=== PATIENT | female | born 1995 | race African-American/Black ===

== ENCOUNTER 2017-08-26 19:16 | Emergency (ER) | payer BC ==
[2017-08-26 19:33] VITALS: BP 113/70; PULSE 95; RESP 18; TEMP 99
[2017-08-26] MEDS ORDERED: CYCLOBENZAPRINE 10MG STARTER 3 TAB BTL PO STA (19:52)
--- NOTE | 2017-08-26 19:52 | ED ---
General Adult HPI - General Chief complaint: Back Pain/Injury Stated complaint: Back Pain Time Seen by Provider: 08/26/17 19:43 Source: patient, RN notes reviewed Mode of arrival: ambulatory Limitations: no limitations - History of Present Illness Initial comments: 21-year-old female presents to the emergency department with a chief complaint of right shoulder strain. She states she just has this pain in her right shoulder blade. She states whenever she pulls or lifts she causes herself discomfort. She states she was roughhousing before it happened. She states started today. She states that there is no shortness of breath or chest pain with this. She states there is been no nausea vomiting. They were concerned due to her continued discomfort so they thought they should be evaluated. Patient denies any recent fever, chills, shortness of breath, chest pain, back pain, abdominal pain, nausea vomiting, numbness or tingling, dysuria or hematuria, constipation or diarrhea, headaches or visual changes, or any other current symptoms. - Related Data Home Medications Medication Instructions Recorded Confirmed No Known Home Medications [No 08/26/17 08/26/17 Known Home Medications] Allergies Allergy/AdvReac Type Severity Reaction Status Date / Time No Known Allergies Allergy Verified 08/26/17 19:34 Review of Systems ROS Statement: Those systems with pertinent positive or pertinent negative responses have been documented in the HPI. ROS Other: All systems not noted in ROS Statement are negative. Past Medical History Past Medical History: No Reported History Additional Past Medical History / Comment(s): low iron History of Any Multi-Drug Resistant Organisms: None Reported Past Surgical History: No Surgical Hx Reported Past Psychological History: No Psychological Hx Reported Smoking Status: Former smoker Past Alcohol Use History: None Reported Past Drug Use History: None Reported General Exam - General Exam Comments Initial Comments: General: The patient is awake and alert, in no distress, and does not appear acutely ill. Neck: The neck is supple, there is no tenderness . Cardiovascular: There is a regular rate and rhythm. No murmur, rub or gallop is appreciated. Respiratory: Lungs are clear to auscultation, respirations are non-labored, breath sounds are equal. No wheezes, stridor, rales, or rhonchi. Musculoskeletal: Sensation intact. Pulses. Full range of motion of the right shoulder. Tenderness patient over the right rhomboids. No tenderness. At the shoulder or below. No bony tenderness noted. Neurological: CN II-XII intact, There are no obvious motor or sensory deficits. Coordination appears grossly intact. Speech is normal. Skin: Skin is warm and dry and no rashes or lesions are noted. Psychiatric: Normal mood and affect. Limitations: no limitations Course Vital Signs 08/26/17 19:31 Temperature 99 F Pulse Rate 95 Respiratory 18 Rate Blood Pressure 113/70 O2 Sat by Pulse 100 Oximetry Medical Decision Making - Medical Decision Making 21-year-old female presents for what appears to be a right rhomboid muscle strain. At this time we discussed we will give her a small flexion of muscle relaxers we discussed care follow-up return parameters all questions. Patient stated that she understood and she is very plan. All questions have been answered. She will be discharged Disposition Clinical Impression: Right shoulder strain Disposition: HOME SELF-CARE Condition: Stable Instructions: Muscle Strain (ED) Additional Instructions: Please use medication as discussed. Please follow up with family doctor if symptoms have not improved over the next two days. Please return to the emergency room if your symptoms increase or worsen or for any other concerns. Referrals: Roland Gutierrez MD [Primary Care Provider] - 1-2 days Time of Disposition: 19:52
== END 2017-08-26 20:21 | disposition home or self-care (01) ==
LOC: EC 19:16
DX: S46.911A Strain of unspecified muscle, fascia and tendon at shoulder and upper arm level, right arm, initial encounter (principal); Z87.891 Personal history of nicotine dependence; X58.XXXA Exposure to other specified factors, initial encounter; Y93.83 Activity, rough housing and horseplay
CPT/HCPCS: 99283

== ENCOUNTER 2018-04-08 15:03 | Emergency (ER) | payer BC ==
[2018-04-08 15:09] VITALS: BP 105/68; PULSE 89; RESP 20; TEMP 98.5
--- NOTE | 2018-04-08 15:20 | ED ---
Chest Pain HPI - General Chief Complaint: Chest Pain Stated Complaint: chest pain-1 wk Time Seen by Provider: 04/08/18 15:12 Source: patient, RN notes reviewed Mode of arrival: ambulatory Limitations: no limitations - History of Present Illness Initial Comments: This is a 22-year-old female with history of costochondritis who presents to the emergency department with chief complaint of chest pain. Patient reports feeling mid sternal chest pain since last Thursday. Patient states that pain is positional, increasing with movement, laying on her side and lifting. She states that the pain is worse after working a shift at work. She states she works at [employer] and does lift heavy objects. Patient states that she believes this is related to the costochondritis but her mom recommended that she come to the emergency department. Patient states that she has taken one dose of ibuprofen 600mg since onset of symptoms and that there was no improvement. She denies any other medical issues and takes no medications. She denies fevers or chills, shortness of breath, abdominal pain, nausea or vomiting. - Related Data Home Medications Medication Instructions Recorded Confirmed Norgestimate-Ethinyl Estradiol 1 tab PO DAILY 08/26/17 04/08/18 [Sprintec 28 Day Tablet] Aspirin 162 mg PO DAILY 04/08/18 04/08/18 Allergies Allergy/AdvReac Type Severity Reaction Status Date / Time No Known Allergies Allergy Verified 04/08/18 15:09 Review of Systems ROS Statement: Those systems with pertinent positive or pertinent negative responses have been documented in the HPI. ROS Other: All systems not noted in ROS Statement are negative. Past Medical History Past Medical History: No Reported History Additional Past Medical History / Comment(s): low iron History of Any Multi-Drug Resistant Organisms: None Reported Past Surgical History: No Surgical Hx Reported Past Psychological History: No Psychological Hx Reported Smoking Status: Former smoker Past Alcohol Use History: None Reported Past Drug Use History: None Reported General Exam - General Exam Comments Initial Comments: General: Awake and alert, well-developed; in no apparent distress. HEENT: Head atraumatic, normocephalic. Pupils are equal, round and reactive to light. Extraocular movements intact. Oropharynx moist without erythema or exudate. Neck: Supple. Normal ROM. Cardiovascular: Regular rate and rhythm. No murmurs, rubs or gallops. Chest symmetrical. Tenderness on palpation of the mid sternum and right costal cartilage. Respiratory: Lungs clear to auscultation bilaterally. No wheezes, rales or rhonchi. Normal respiratory effort with no use of accessory muscles. Abdomen: Soft, non-tender, non-distended. No rigidity, rebound or guarding. Musculoskeletal: Normal ROM, no tenderness bilateral upper and lower extremities. Ambulating normally. Skin: Ledbetter, warm and dry without rashes or lesions. Neurological: Alert and oriented x3. CN II-XII grossly intact. Speech is fluent and answers are appropriate. No focal neuro deficits. Psychiatric: Normal mood and affect. No overt signs of depression or anxiety noted. Limitations: no limitations Course Vital Signs 04/08/18 15:08 Temperature 98.5 F Pulse Rate 89 Respiratory 20 Rate Blood Pressure 105/68 O2 Sat by Pulse 99 Oximetry Chest Pain MDM - MDM This is a 22-year-old female who presents to the emergency department with chief complaint of chest pain. Patient symptoms have been present since Thursday. She does have a history of costochondritis and believes it is related to this. Patient reports the pain is positional, increasing with heavy lifting and is worse after working. Pain is reproducible. There is tenderness on palpation of the mid sternum and right costal cartilage. Chest x-ray reveals no acute abnormalities. EKG shows a normal sinus rhythm. Patient's vital signs are stable and she is in no acute distress. She will be treated for costochondritis with recommendation to take anti-inflammatories for the next 2- 3 days. She'll be discharged home at this time. She is in agreement with plan and voices understanding. All questions were answered. Chest x-ray impression: No acute cardiopulmonary process. Disposition Clinical Impression: Costalchondritis, Chest wall syndrome Disposition: HOME SELF-CARE Condition: Good Instructions: Costochondritis (ED) Additional Instructions: Please take ibuprofen 600 mg every 6 hours the next 2-3 days. Please follow up with primary care provider within 1-2 days. Return to emergency department if symptoms should worsen or any concerns arise. Is patient prescribed a controlled substance at d/c from ED?: No Referrals: Phillip Webb MD [Primary Care Provider] - 1-2 days Time of Disposition: 16:00
--- NOTE | 2018-04-08 15:32 | XR ---
EXAMINATION TYPE: XR chest 2V DATE OF EXAM: 04/08/2018 COMPARISON: 06/01/2016 HISTORY: 22-year-old female with chest pain TECHNIQUE: PA and lateral views FINDINGS: The cardiomediastinal silhouette, aorta, and pulmonary vasculature are within normal limits. Hazy low er lung densities related to overlying soft tissue. Otherwise, lungs and pleural spaces are clear. IMPRESSION: No acute cardiopulmonary process.
== END 2018-04-08 16:08 | disposition home or self-care (01) ==
LOC: EC 15:03
DX: M94.0 Chondrocostal junction syndrome [Tietze] (principal); Z79.82 Long term (current) use of aspirin; Z87.891 Personal history of nicotine dependence
CPT/HCPCS: 71046; 93005; 99285

== ENCOUNTER → 2018-12-02 | Outpatient (CLI) | payer BC ==
--- NOTE | 2018-12-02 16:38 | US ---
EXAMINATION TYPE: US OB >= 14 wk fetus DATE OF EXAM: 12/02/2018 COMPARISON: None CLINICAL HISTORY: R68.89 Abnormal clinic findingsPatient fell today. Cramping. TECHNIQUE: Transabdominal (TA) GESTATIONAL AGE / DATING Physician Established: (16 weeks/1 days) EDC: 05/18/2019 Dates by LMP: Unknown Dates by First Scan: No previous this is first scan Dates by Current Scan: (16 weeks/0 days) EDC: 05/19/2019 Beta HCG (if available): N/A SURVEY IUP: Single PLACENTA: Posterior PREVIA: No Previa ROCK: 11.55 cm Normal CERVICAL LENGTH (transabdominal: norm > 3.0cm): 2.99 cm CERVICAL LENGTH (transvaginal: norm> 2.5cm): Not performed (Supplemental transvaginal imaging performed to verify cervical length.) BIOMETRY PRESENTATION: Breech LIE: Longitudinal BPD: 3.09 cm 15 weeks / 5 days HC: 11.66 cm 15 weeks / 5 days AC: 9.92 cm 16 weeks / 0 days FL: 1.95 cm 15 weeks / 6 days ESTIMATED WEIGHT IN GRAMS: 137.26 grams ESTIMATED WEIGHT IN LBS/OZ: 5 lbs. 1 oz. WEIGHT PERCENTAGE BASED ON ESTABLISHED DATES: 24.2% HC/AC: 1.17 Normal FL/AC: 19.61 Normal HEART RATE: 154 bpm RHYTHM: Normal MATERNAL WALL MEASUREMENT: cm from skin to anterior uterine wall (if exam limited due to body habitus ). *Baby in difficult position for head measurements. IMPRESSION: Ultrasound gestational age is 16 weeks. No complicating process seen.
== END | disposition home or self-care (01) ==
LOC: RADUSWWP 14:36
PROVIDERS: ATTEND Obstetrics & Gynecology
DX: O99.89 Other specified diseases and conditions complicating pregnancy, childbirth and the puerperium (principal); R10.9 Unspecified abdominal pain; Z3A.16 16 weeks gestation of pregnancy
CPT/HCPCS: 76805

== ENCOUNTER 2019-05-15 23:20 | Inpatient (IN) | payer BC, OTHER ==
[2019-05-15] MEDS ORDERED: OXYTOCIN 30 UNITS/500 ML NS 30 UNIT in SALINE 1 500ML.BAG IV SCH (23:45)
[2019-05-15] MEDS ORDERED: LACTATED RINGERS 1,000 ML IV SCH (23:45)
[2019-05-15] MEDS ORDERED: METHYLERGONOVINE 0.2 MG/ML 1 ML AMP IM PRN (23:58)
[2019-05-15] MEDS ORDERED: OXYTOCIN 10 UNIT/ML 1 ML VIAL IM PRN (23:58)
[2019-05-15] MEDS ORDERED: TERBUTALINE 1 MG/ML VIAL SQ PRN (23:58)
[2019-05-15] MEDS ORDERED: CARBOPROST TROMETHAMINE 250 MCG/ML 1 ML AMP IM PRN (23:58)
[2019-05-15] MEDS ORDERED: LIDOCAINE 0.5% (PF) 5 MG/ML (50 ML SDV) SQ PRN (23:58)
[2019-05-16] MEDS: LACTATED RINGERS 1,000 ML IV SCH ×3 (00:30→20:54)
[2019-05-16 01:04] LABS: Anisocytosis Slight; Basophils # (A) 0.1 k/uL (0-0.2); Basophils % (A) 0 %; Eosinophils # (A) 0.1 k/uL (0-0.7); Eosinophils % (A) 1 %; HCT 35.8 % (34.0-46.0); HGB 11.7 gm/dL (11.4-16.0); Lymphocytes # (A) 1.8 k/uL (1.0-4.8); Lymphocytes % (A) 13 %; MCH 27.2 pg (25.0-35.0); MCHC 32.6 g/dL (31.0-37.0); MCV 83.4 fL (80.0-100.0); Monocytes # (A) 0.9 k/uL (0-1.0); Monocytes % (A) 7 %; Neutrophils # (A) 10.5 k/uL (1.3-7.7); Neutrophils % (A) 75 %; Platelet Count 291 k/uL (150-450); RBC 4.29 m/uL (3.80-5.40); RDW 16.7 % (11.5-15.5); WBC 13.9 k/uL (3.8-10.6)
[2019-05-16 01:15] LABS: ALT 17 U/L (9-52); AST 23 U/L (14-36); African American GFR (CKD) >90 (>60 ml/min/1.73 sqM); Blood Urea Nitrogen 9 mg/dL (7-17); LDH 464 U/L (313-618); Uric Acid 5.4 mg/dL (3.7-7.4)
[2019-05-16 01:55] VITALS: RESP 16; BMI 29.8
[2019-05-16] MEDS ORDERED: SODIUM CHLORIDE 0.9% 100 ML BAG ONE (02:00)
[2019-05-16] MEDS ORDERED: fentaNYL (PF) 50 MCG/ML 5 ML AMP ONE (02:00)
[2019-05-16] MEDS ORDERED: ROPIVACAINE 5MG/ML 20ML VIAL ONE (02:00)
--- NOTE | 2019-05-16 05:02 | P.HPOB ---
History of Present Illness H&P Date: 05/16/19 Chief Complaint: IUP at 39 and 5/sevenths weeks, spontaneous rupture of lewis chappell This is a 23-year-old 1 para 0 at 39-5/7 weeks that presents to labor and delivery with complaints of spontaneous rupture of membranes. Patient notes the fluid to be clear in nature and states she ruptured about 1930 this evening. She denied contractions at that time. Patient notes good movement denies vaginal bleeding. Patient has been receiving routine care with Dr. Wang and it has been uncomplicated. On bloodwork she notes a blood type of O+, rubella immune, hepatitis B surface engine negative, HIV negative, GBS is negative. Review of Systems Constitutional: Denies chills, Denies fatigue, Denies fever Ears, nose, mouth and throat: Denies headache Cardiovascular: Reports leg edema Respiratory: Denies cough, Denies dyspnea Gastrointestinal: Denies constipation, Denies diarrhea, Denies nausea, Denies vomiting Genitourinary: Reports Past Medical History Past Medical History: No Reported History Additional Past Medical History / Comment(s): low iron History of Any Multi-Drug Resistant Organisms: None Reported Past Surgical History: No Surgical Hx Reported Past Psychological History: No Psychological Hx Reported Smoking Status: Never smoker Past Alcohol Use History: None Reported Past Drug Use History: None Reported - Past Family History Mother Family Medical History: Diabetes Mellitus, Hypertension Medications and Allergies Home Medications Medication Instructions Recorded Confirmed Type Iron 1 tab PO ONCE 05/15/19 05/15/19 History Pnv No.95/Ferrous Fum/Folic AC 1 tab PO ONCE 05/15/19 05/15/19 History [ Multivitamin Tablet] Allergies Allergy/AdvReac Type Severity Reaction Status Date / Time No Known Allergies Allergy Verified 05/15/19 23:27 Exam Osteopathic Statement: *. No significant issues noted on an osteopathic structural exam other than those noted in the History and Physical/Consult. Vital Signs Temp Pulse Resp BP Pulse Ox 05/15/19 23:55 97.2 F L 96 16 149/101 100 Intake and Output 05/15/19 05/15/19 05/16/19 14:59 22:59 06:59 Other: Weight 73.936 kg Targeted physical exam was performed and on this date in general this a well-nourished well-developed female in no acute distress, breathing is noted to be nonlabored, heart is regular rate and rhythm, abdomen is noted to be gravid, there is trace lower extremity edema, heart tones are noted to be category 1 and she is domenic irregularly, on cervical exam per RN she was 2-3/80/-2 and grossly ruptured on initial exam. Results Result Diagrams: 05/16/19 00:55 05/16/19 00:55 Abnormal Lab Results - Last 24 Hours (Table) 05/16/19 Range/Units 00:55 WBC 13.9 H (3.8-10.6) k/uL RDW 16.7 H (11.5-15.5) % Neutrophils # 10.5 H (1.3-7.7) k/uL Assessment and Plan (1) Term Current Visit: Yes Status: Acute Code(s): Z34.90 - ENCNTR FOR SUPRVSN OF NORMAL , UNSP, UNSP TRIMESTER SNOMED Code(s): 34010209 (2) SROM (spontaneous rupture of membranes) Current Visit: Yes Status: Acute Code(s): OQJ3543 - SNOMED Code(s): 512516255 Plan: Patient was admitted to labor and delivery for expectant management. Anticipate spontaneous vaginal delivery later today.
[2019-05-16] MEDS ORDERED: ACETAMINOPHEN TAB 325 MG TAB PO PRN (05:04)
[2019-05-16] MEDS ORDERED: LANOLIN CREAM 5 GM TUBE TOPICAL PRN (05:04)
[2019-05-16] MEDS ORDERED: BENZOCAINE/MENTHOL SPRAY 1 GM/SPRAY AEROSOL TOPICAL PRN (05:04)
[2019-05-16] MEDS ORDERED: HYDROCORTISONE 2.5% RECTAL CREAM 30 GM TUBE RECTAL PRN (05:04)
[2019-05-16] MEDS ORDERED: SIMETHICONE 80 MG CHEWABLE PO PRN (05:04)
[2019-05-16] MEDS ORDERED: HYDROcodone/APAP 5-325MG 1 EACH TAB PO PRN (05:04)
[2019-05-16] MEDS ORDERED: IBUPROFEN 600 MG TAB PO PRN (05:04)
[2019-05-16] MEDS ORDERED: diphenhydrAMINE 25 MG CAP PO PRN (05:04)
[2019-05-16] MEDS ORDERED: diphenhydrAMINE 50 MG CAP PO PRN (05:04)
[2019-05-16] MEDS ORDERED: ZOLPIDEM 5 MG TAB PO PRN (05:04)
[2019-05-16] MEDS ORDERED: WITCH HAZEL 1 EACH MED..PAD TOPICAL PRN (05:04)
[2019-05-16] MEDS ORDERED: diphenhydrAMINE 50 MG/ML 1 ML VIAL IVP PRN ×2 (05:04)
--- NOTE | 2019-05-16 05:04 | P.PROBDLV ---
Vaginal Delivery Note - . Vaginal Delivery Note: This 23-year-old 1 para 0 presented to labor and delivery with complaints of spontaneous rupture of membranes. Patient progressed through labor eventually becoming uncomfortable and requesting epidural placement. Epidural was placed by the anesthesia Department without difficulty. Patient progressed to complete, began pushing and had a quick delivery of a viable female infant at 444. After two-minute delay the umbilical cord was then doubly clamped and cut and was handed off to mom. The placenta was then delivered spontaneously intact with a three-vessel cord being noted. Uterus is firm and below the umbilicus at this time. There were no vaginal lacerations appreciated. Weight of the is pending at this time as she remains with mom. Estimated blood loss 300 mL's. Patient and infant tolerated delivery well.
[2019-05-16] MEDS ORDERED: FERROUS SULFATE 325 MG TAB PO ONE (05:15)
[2019-05-16] MEDS ORDERED: PRENATAL VIT-IRON-FOLIC ACID 1 EACH CAP PO ONE (05:15)
[2019-05-16] MEDS ORDERED: OXYTOCIN 20 UNITS/1000 ML NS 1,000 ML IV SCH (05:15)
[2019-05-16] MEDS: SENNOSIDES-DOCUSATE SODIUM 1 EACH TAB PO SCH ×2 (08:17→19:35)
--- NOTE | 2019-05-17 08:11 | P.DS ---
Providers Date of admission: 05/15/19 23:43 Expected date of discharge: 05/17/19 Attending physician: Gail Wang Primary care physician: Stated None - Discharge Diagnosis(es) (1) SROM (spontaneous rupture of membranes) Current Visit: Yes Status: Acute (2) Term Current Visit: Yes Status: Acute (3) Normal spontaneous vaginal delivery Current Visit: Yes Status: Acute Hospital Course: This is a 23-year-old 1 now para 1 woman who presented with spontaneous rupture of membranes in labor at 39-5/7 weeks gestation. She received an epidural anesthetic. She had an unremarkable labor and went on to deliver a liveborn female over an intact perineum weighing 5 lbs. 15 oz. Please see the delivery summary for details. The patient's course was unremarkable. By day #1 she was ambulating and voiding without difficulty. She had minimal to no pain. She had decreasing lochia. She was breast-feeding successfully. She was therefore discharged home on day #1 with routine instructions for care and follow-up. Procedures: Patient Condition at Discharge: Good Plan - Discharge Summary New Discharge Prescriptions: No Action Pnv No.95/Ferrous Fum/Folic AC [ Multivitamin Tablet] 1 tab PO ONCE Iron 1 tab PO ONCE Discharge Medication List Iron 1 tab PO ONCE 05/15/19 [History] Pnv No.95/Ferrous Fum/Folic AC [ Multivitamin Tablet] 1 tab PO ONCE 05/15/19 [History] Follow up Appointment(s)/Referral(s): Gail Wang MD [STAFF PHYSICIAN] - 6 Weeks Activity/Diet/Wound Care/Special Instructions: Follow-up in the office in 6 weeks . Call with any concerning signs or symptoms including heavy vaginal bleeding, severe abdominal pain, fever greater than 101, swelling or redness of the lower extremities, foul vaginal discharge, or signs of depression. Nothing in the vagina for 6 weeks after delivery, specifically no intercourse. Discharge Disposition: HOME SELF-CARE
[2019-05-17 08:17] LABS: Anisocytosis Slight; Basophils % (A) 0 %; Eosinophils # (A) 0.1 k/uL (0-0.7); Eosinophils % (A) 1 %; HCT 29.4 % (34.0-46.0); Lymphocytes # (A) 1.6 k/uL (1.0-4.8); Lymphocytes % (A) 14 %; MCH 26.6 pg (25.0-35.0); MCHC 31.7 g/dL (31.0-37.0); MCV 83.9 fL (80.0-100.0); Mean Platelet Volume 7.3; Monocytes # (A) 0.7 k/uL (0-1.0); Monocytes % (A) 6 %; Neutrophils # (A) 8.2 k/uL (1.3-7.7); Neutrophils % (A) 75 %; Platelet Count 196 k/uL (150-450); RBC 3.51 m/uL (3.80-5.40); RDW 16.7 % (11.5-15.5)
--- NOTE | 2019-05-17 08:20 | P.MSEPDOC ---
Presenting Problems - Arrival Data Date of Arrival on Unit: 05/15/19 Time of Arrival on Unit: 23:48 Mode of Transport: Ambulatory Medical History - Information : 1 Para: 0 Term: 0 : 0 Abortions: Spontaneous or Elective: 0 Number of Living Children: 0 - Gestational Age Gestational Age by GABBI (wks/days): 39 Weeks and 5 Days Vital Signs - Temperature Temperature: 98.3 F Temperature Source: Oral - Pulse Right Brachial Pulse Rate: 84 Pulse Assessment Method: Automatic Cuff - Respirations Respiratory Rate: 16 Oxygen Delivery Method: Room Air - Blood Pressure Right Arm Blood Pressure: 140/87 Blood Pressure Mean: 104 Blood Pressure Source: Automatic Cuff Physician Notification (Pre) - Physician Notified Physician Notified Date: 05/16/19 Physician Notified Time: 23:47 Spoke With: Leah New Order Received: Yes - Notification Comment Comment: Admit for labor, srom around 1930, pih labwork ordered. Disposition - Disposition OB Disposition: Admit, LDRP Suite I agree with the RN Medical Screening Exam: Yes Risk & Benefit of care provided described in d/c instruction: Yes Diagnosis: ENCOUNTER FOR FULL-TERM UNCOMPLICATED DELIVERY
[2019-05-17 08:27] LABS: HGB 9.3 gm/dL (11.4-16.0)
[2019-05-17] MEDS: SENNOSIDES-DOCUSATE SODIUM 1 EACH TAB PO SCH (08:54)
[2019-05-17 16:34] VITALS: BP 117/75; PULSE 73
[2019-05-17 18:23] VITALS: TEMP 98.5
== END 2019-05-17 18:00 | disposition home or self-care (01) | DRG 807 ==
LOC: FBPOP 23:20 → 4FBP 23:43
PROVIDERS: ADMIT Obstetrics & Gynecology Obstetrics; ATTEND Obstetrics & Gynecology
PROC: 00HU33Z Insertion of Infusion Device into Spinal Canal, Percutaneous Approach (ICD-10-PCS; principal; 2019-05-15)
PROC: 10E0XZZ Delivery of Products of Conception, External Approach (ICD-10-PCS; principal; 2019-05-15)
PROC: 3E0R3NZ Introduction of Analgesics, Hypnotics, Sedatives into Spinal Canal, Percutaneous Approach (ICD-10-PCS; principal; 2019-05-15)
DX: O80 Encounter for full-term uncomplicated delivery (principal); Z37.0 Single live birth; Z3A.39 39 weeks gestation of pregnancy; Z82.49 Family history of ischemic heart disease and other diseases of the circulatory system; Z83.3 Family history of diabetes mellitus
CPT/HCPCS: 59025; 82565; 83615; 84112; 84450; 84460; 84520; 84550; 85025; 86850; 86900; 86901; 99213

== ENCOUNTER → 2020-03-21 | Outpatient (CLI) | payer BC, OTHER ==
--- NOTE | 2020-03-21 16:57 | XR ---
EXAMINATION TYPE: XR shoulder complete LT DATE OF EXAM: 03/21/2020 CLINICAL HISTORY: Left shoulder tendinitis. Shoulder pain for 2 weeks. TECHNIQUE: Three views of the left shoulder are obtained. COMPARISON: None. FINDINGS: There is no acute fracture/dislocation evident in the left shoulder. The acromioclavicula r and glenohumeral joint spaces appear within normal limits. The visualized ribs are intact and unre markable. IMPRESSION: Unremarkable left shoulder radiograph.
== END | disposition home or self-care (01) ==
LOC: RADXRMAIN 15:16
PROVIDERS: ATTEND Internal Medicine
DX: M75.82 Other shoulder lesions, left shoulder (principal)

== ENCOUNTER → 2020-05-31 | Outpatient (CLI) | payer BC, OTHER | END | disposition home or self-care (01) | LOC: LABWHC1 12:42 | PROVIDERS: ATTEND Internal Medicine | DX: Z20.828 Contact with and (suspected) exposure to other viral communicable diseases (principal) | CPT/HCPCS: U0003; C9803 ==

== ENCOUNTER → 2020-06-19 | Outpatient (CLI) | payer BC, OTHER | END | disposition home or self-care (01) | LOC: LABWHC1 15:50 | PROVIDERS: ATTEND Internal Medicine | DX: U07.1 COVID-19 (principal) | CPT/HCPCS: U0003; C9803 ==

== ENCOUNTER 2024-01-30 01:00 | Outpatient (CLI) | payer BC, OTHER ==
[2024-01-30 02:30] VITALS: BP 132/78; PULSE 93; RESP 16; TEMP 97.9
--- NOTE | 2024-01-30 11:56 | P.MSEPDOC ---
Presenting Problems - Arrival Data Date of Arrival on Unit: 01/30/24 Time of Arrival on Unit: 01:00 Mode of Transport: Ambulatory - Complaint OB-Reason for Admission/Chief Complaint: Possible Onset of Labor Medical History - Information : 2 Para: 1 Term: 1 : 0 Abortions: Spontaneous or Elective: 0 Number of Living Children: 1 - Gestational Age Gestational Age by GABBI (wks/days): 39 Weeks and 5 Days Review of Systems - Review of Systems Constitutional: No problems Breast: No problems ENT: No problems Cardiovascular: No problems Respiratory: No problems Gastrointestinal: No problems Genitourinary: No problems Musculoskeletal: No problems Neurological: No problems Skin: No problems Vital Signs - Temperature Temperature: 97.9 F Temperature Source: Temporal Artery Scan - Pulse Pulse Oximetery Pulse Rate: 93 Pulse Assessment Method: Pulse Oximetry - Respirations Respiratory Rate: 16 Oxygen Delivery Method: Room Air O2 Sat by Pulse Oximetry: 100 - Blood Pressure Right Arm Blood Pressure: 132/78 Blood Pressure Mean: 96 Blood Pressure Source: Automatic Cuff Medical Screen Scoring - Cervical Exam Dilation (cm): 3 Effacement (%): 80 Station: -2 Membranes: Intact - Uterine Contractions Intensity: Moderate Resting: Soft to palpation - Assessment - Baby A Baseline FHR: 155 Heart Rate - NICHD Category: Category I (Normal) NST: Reactive Physician Notification - Physician Notified Physician Notified Date: 01/30/24 Physician Notified Time: 02:16 Physician: Yakov Mcclelland Order Received: Yes - Notification Comment Comment: Dr. Mcclelland called at home, notified of pt complaints, GA, G/P, VS, CAT 1 FHT, reactive NST, contraction pattern and cervical exam. Orders to discharge home with instuctions Maternal Triage Index - Maternal Triage Index Presenting for scheduled procedure w/no complaint: No - Stat/Priority 1 Stat Priority 1: No - Urgent/Priority 2 Urgent Priority 2: No - Prompt/Priority 3 Prompt Priority 3: No - Non-Urgent/Priority 4 Non-Urgent Priority 4: Yes Criteria Met for Priority 4: pt. present to triage due to contractions that started at 1900 tonight and are about every 2-5min apart rating them 8/10 Disposition - Disposition OB Disposition: Discharge to home Discharge Date: 01/30/24 Discharge Time: 02:24 I agree with the RN Medical Screening Exam: Yes Physician's MSE Comment: I have neither seen nor examined the patient. Case reviewed; plan agreed upon as documented in EMR&OBIX.: Yes Diagnosis: RELATED CONDITIONS, UNSPECIFIED, THIRD TRIMESTER
== END 2024-01-30 02:24 | disposition home or self-care (01) ==
LOC: FBPOP 01:00
PROVIDERS: ATTEND Obstetrics & Gynecology
DX: O47.1 False labor at or after 37 completed weeks of gestation (principal); Z3A.39 39 weeks gestation of pregnancy
CPT/HCPCS: 59025; 99213

== ENCOUNTER 2024-01-31 03:00 | Inpatient (IN) | payer BC, OTHER ==
[2024-01-31] MEDS ORDERED: TERBUTALINE 1 MG/ML VIAL SQ PRN (03:37)
[2024-01-31] MEDS ORDERED: miSOPROStoL 200 MCG TAB PO PRN (03:37)
[2024-01-31] MEDS ORDERED: miSOPROStoL 200 MCG TAB RECTAL PRN (03:37)
[2024-01-31] MEDS ORDERED: CARBOPROST TROMETHAMINE 250 MCG/ML 1 ML AMP IM PRN (03:37)
[2024-01-31] MEDS ORDERED: METHYLERGONOVINE 0.2 MG/ML 1 ML AMP IM PRN (03:37)
[2024-01-31] MEDS ORDERED: LIDOCAINE 0.5% (PF) 5 MG/ML (50 ML SDV) SQ PRN (03:37)
[2024-01-31] MEDS ORDERED: OXYTOCIN 10 UNIT/ML 1 ML VIAL IM PRN (03:37)
[2024-01-31] MEDS ORDERED: TRANEXAMIC 1,000 MG/100ML-NACL 1,000 MG in EMPTY BAG 1 BAG IV PRN (03:37)
[2024-01-31] MEDS: LACTATED RINGERS 1,000 ML IV SCH (03:51)
[2024-01-31 04:13] LABS: Anisocytosis Slight; Basophils % (A) 0 %; Eosinophils # (A) 0.1 k/uL (0-0.7); Eosinophils % (A) 1 %; HCT 40.5 % (34.0-46.0); HGB 12.5 gm/dL (11.4-16.0); Lymphocytes # (A) 1.3 k/uL (1.0-4.8); Lymphocytes % (A) 12 %; MCH 26.7 pg (25.0-35.0); MCHC 30.8 g/dL (31.0-37.0); MCV 86.7 fL (80.0-100.0); Mean Platelet Volume 8.3; Monocytes # (A) 0.8 k/uL (0-1.0); Monocytes % (A) 7 %; Neutrophils # (A) 8.8 k/uL (1.3-7.7); Neutrophils % (A) 78 %; Platelet Count 240 k/uL (150-450); RBC 4.67 m/uL (3.80-5.40); RDW 16.5 % (11.5-15.5); WBC 11.3 k/uL (3.8-10.6)
[2024-01-31] MEDS ORDERED: SODIUM CHLORIDE 0.9% 250 ML BAG ONE (04:25)
[2024-01-31] MEDS ORDERED: ROPIVACAINE 5 MG/ML 30 ML VIAL ONE (04:25)
[2024-01-31] MEDS ORDERED: fentaNYL (PF) 50 MCG/ML 5 ML AMP ONE (04:25)
--- NOTE | 2024-01-31 05:10 | P.HPOB ---
History of Present Illness H&P Date: 01/31/24 Chief Complaint: 39-6/7 weeks, spontaneous rupture, active labor Patient is a 28-year-old 2 para 1-0-0-1 admitted at 39-6/7 weeks as established by 7-week ultrasound. She is admitted with documented spontaneous rupture of membranes and early active labor with all signs reassuring, category 1 heart rate tracing. Her has been essentially uncomplicated though she did have COVID during her and had reassuring weekly testing after 32 weeks. Group B strep status is negative. Obstetrical history: 2 para 1-0-0-1 with 1 term vaginal delivery without complications. Current statistics are listed in history of present illness. EDC of 02/01/2024 was established by a 7-week ultrasound. Laboratory workup demonstrates a blood type of O+ with a negative antibody screen. Rubella status is immune. The remainder of the laboratory workup was within normal limits. 1 hour Glucola was normal and group B strep status is negative. Gynecologic history: Unremarkable with no history of any infections to include STDs. Review of Systems Systems is confined to history of present illness. Past Medical History Past Medical History: No Reported History Additional Past Medical History / Comment(s): low iron History of Any Multi-Drug Resistant Organisms: None Reported Past Surgical History: No Surgical Hx Reported Past Psychological History: No Psychological Hx Reported Smoking Status: Never smoker Past Alcohol Use History: None Reported Past Drug Use History: None Reported - Past Family History Mother Family Medical History: Diabetes Mellitus, Hypertension Medications and Allergies Home Medications Medication Instructions Recorded Confirmed Type Iron 1 tab PO ONCE 05/15/19 01/31/24 History Pnv No.95/Ferrous Fum/Folic AC 1 tab PO ONCE 05/15/19 01/31/24 History [ Multivitamin Tablet] Allergies Allergy/AdvReac Type Severity Reaction Status Date / Time No Known Allergies Allergy Verified 05/15/19 23:27 Exam Vital Signs Temp Pulse Resp BP Pulse Ox 01/31/24 03:26 98.6 F 98 16 124/77 100 01/31/24 03:02 97.1 F L 96 16 124/77 100 Intake and Output 01/30/24 01/30/24 01/31/24 14:59 22:59 06:59 Other: Weight 77.111 kg General, this is a well-developed, well-nourished -[place] female in no acute distress. Her heart has a regular rhythm and rate without murmur. Her lungs are clear to auscultation bilaterally in all mcpherson. Her abdomen is gravid, nondistended, has normal active bowel sounds, soft, nontender, and without any palpable masses aside from the uterine fundus. Her extremities are without any cyanosis, clubbing, or edema and are nontender to palpation bilaterally. Digital cervical examination performed by the nursing staff demonstrates her cervix to be 6 to 7 cm, 80% effaced, with a vertex and presentation at -1 station. Spontaneous rupture of membranes has been docume nted. Results Result Diagrams: 01/31/24 03:53 Abnormal Lab Results - Last 24 Hours (Table) 01/31/24 Range/Units 03:53 WBC 11.3 H (3.8-10.6) k/uL MCHC 30.8 L (31.0-37.0) g/dL RDW 16.5 H (11.5-15.5) % Neutrophils # 8.8 H (1.3-7.7) k/uL Assessment and Plan (1) Active labor at term Current Visit: Yes Status: Acute Code(s): SRQ8626 - SNOMED Code(s): 97022366 (2) SROM (spontaneous rupture of membranes) Current Visit: Yes Status: Acute Code(s): RPU5972 - SNOMED Code(s): 069170408 Plan: The patient is admitted for active management of labor. An epidural catheter has been placed for analgesia. She will have close maternal and surveillance and expectant management will be practiced. I would anticipate normal spontaneous vaginal delivery in the near future.
[2024-01-31] MEDS: OXYTOCIN 30 UNITS/500 ML NS 30 UNIT in SALINE 1 500ML.BAG IV SCH (06:35)
[2024-01-31] MEDS ORDERED: diphenhydrAMINE 50 MG CAP PO PRN (06:44)
[2024-01-31] MEDS ORDERED: diphenhydrAMINE 25 MG CAP PO PRN (06:44)
[2024-01-31] MEDS ORDERED: HYDROcodone/APAP 5-325MG 1 EACH TAB PO PRN (06:44)
[2024-01-31] MEDS ORDERED: ZOLPIDEM 5 MG TAB PO PRN (06:44)
[2024-01-31] MEDS ORDERED: HYDROcodone/APAP 7.5-325MG 1 EACH TAB PO PRN (06:44)
[2024-01-31] MEDS ORDERED: HYDROCORTISONE 2.5% RECTAL CREAM 30 GM TUBE RECTAL PRN (06:44)
[2024-01-31] MEDS ORDERED: diphenhydrAMINE 50 MG/ML 1 ML VIAL IVP PRN ×2 (06:44)
[2024-01-31] MEDS ORDERED: LANOLIN CREAM 1 GM TUBE TOPICAL PRN (06:44)
[2024-01-31] MEDS ORDERED: SIMETHICONE 80 MG CHEWABLE PO PRN (06:44)
[2024-01-31] MEDS ORDERED: ACETAMINOPHEN TAB 325 MG TAB PO PRN (06:44)
--- NOTE | 2024-01-31 06:47 | P.PROBDLV ---
Vaginal Delivery Note - . Vaginal Delivery Note: The patient is a 28-year-old 2 para 1-0-0-1 admitted at 39-6/7 weeks by good dating parameters. She is admitted in active labor with documented spontaneous rupture of membranes. Her has been uncomplicated and group B strep status is negative. On labor and delivery, all signs are reassuring with a category 1 heart rate tracing. She had an epidural catheter placed for analgesia and then made fairly rapid progress through the active phase of labor to complete. She pushed over the course of approximately 15 minutes to a normal spontaneous vaginal delivery of a viable 7 pound 13 ounce baby girl with Apgars of 9 at 1 minute and 9 at 5 minutes delivered in the right occiput anterior position. There was a nuchal cord x 1 reduced on the perineum. The placenta was delivered spontaneously, intact, and grossly normal with a grossly normal three-vessel cord inserted approximately 2 cm from the margin of the placental disc. There were no lacerations of the perineum, vagina, or cervix. Estimated blood loss was approximately 100 mL or less. There were no complications. All sponge, instrument, and needle counts were correct. Both mother and infant are resting comfortably in recovery.
[2024-01-31] MEDS: BENZOCAINE/MENTHOL SPRAY 1 GM/SPRAY AEROSOL TOPICAL PRN (07:00)
[2024-01-31] MEDS: SENNOSIDES-DOCUSATE SODIUM 1 EACH TAB PO SCH (09:00)
[2024-01-31] MEDS: IBUPROFEN 600 MG TAB PO PRN (22:02)
[2024-02-01 08:48] VITALS: BP 102/69; PULSE 68; RESP 20; TEMP 97.6
[2024-02-01 10:17] LABS: Anisocytosis Slight; Basophils % (A) 0 %; Eosinophils # (A) 0.1 k/uL (0-0.7); Eosinophils % (A) 1 %; HCT 38.1 % (34.0-46.0); HGB 12.1 gm/dL (11.4-16.0); Lymphocytes # (A) 1.5 k/uL (1.0-4.8); Lymphocytes % (A) 14 %; MCH 27.4 pg (25.0-35.0); MCHC 31.7 g/dL (31.0-37.0); MCV 86.5 fL (80.0-100.0); Mean Platelet Volume 8.3; Monocytes # (A) 0.7 k/uL (0-1.0); Monocytes % (A) 6 %; Neutrophils # (A) 8.2 k/uL (1.3-7.7); Neutrophils % (A) 77 %; Platelet Count 197 k/uL (150-450); RBC 4.41 m/uL (3.80-5.40); RDW 16.4 % (11.5-15.5); WBC 10.7 k/uL (3.8-10.6)
--- NOTE | 2024-02-01 11:59 | P.DS ---
Providers Date of admission: 01/31/24 03:17 Expected date of discharge: 02/01/24 Attending physician: Gail Wang Primary care physician: Stated None - Discharge Diagnosis(es) (1) Active labor at term Current Visit: Yes Status: Acute (2) Normal spontaneous vaginal delivery Current Visit: Yes Status: Acute (3) Nuchal cord, delivered, current hospitalization Current Visit: Yes Status: Acute Hospital Course: 28-year-old 2 now para 2 woman who is admitted at 39-6/7 weeks gestation in spontaneous active labor. Following admission she received an epidural anesthetic. She progressed to complete cervical dilation and had an uncomplicated delivery of a liveborn female infant over intact perineum. Please see the delivery summary for details. Her course was unremarkable. By day #1 she is ambulating and voiding without difficulty, her lochia is decreasing and her pain is well-controlled. Vital signs are stable. is nursing well. She is therefore discharged home with routine instructions for care and follow-up. Patient Condition at Discharge: Good Plan - Discharge Summary New Discharge Prescriptions: New Ibuprofen [Motrin] 600 mg PO Q6HR PRN tab PRN Reason: Mild Pain (Scale 1 To 3) Acetaminophen Tab [Tylenol] 650 mg PO Q4HR PRN tab PRN Reason: Mild Pain Or Fever >= 100.5 No Action Pnv No.95/Ferrous Fum/Folic AC [ Multivitamin Tablet] 1 tab PO ONCE Iron 1 tab PO ONCE Discharge Medication List Iron 1 tab PO ONCE 05/15/19 [History] Pnv No.95/Ferrous Fum/Folic AC [ Multivitamin Tablet] 1 tab PO ONCE 05/15/19 [History] Acetaminophen Tab [Tylenol] 650 mg PO Q4HR PRN tab 02/01/24 [Rx] Ibuprofen [Motrin] 600 mg PO Q6HR PRN tab 02/01/24 [Rx] Follow up Appointment(s)/Referral(s): Gail Wang MD [STAFF PHYSICIAN] - 03/14/24 1:00 pm Activity/Diet/Wound Care/Special Instructions: Follow-up in the office in 6 weeks . Call with any concerning signs or symptoms including heavy vaginal bleeding, severe abdominal pain, fever g reater than 101, swelling or redness of the lower extremities, foul vaginal discharge, or signs of depression. Nothing in the vagina for 6 weeks after delivery, specifically no intercourse.
== END 2024-02-01 13:20 | disposition home or self-care (01) | DRG 807 ==
LOC: FBPOP 03:00 → 4FBP 03:17
PROVIDERS: ADMIT Obstetrics & Gynecology; ATTEND Obstetrics & Gynecology
PROC: 10E0XZZ Delivery of Products of Conception, External Approach (ICD-10-PCS; principal; 2024-01-31)
DX: O69.81X0 Labor and delivery complicated by cord around neck, without compression, not applicable or unspecified (principal); Z37.0 Single live birth; Z3A.39 39 weeks gestation of pregnancy; Z86.16 Personal history of COVID-19
CPT/HCPCS: 59025; 85025; 86850; 86900; 86901; 99213